=== PATIENT | female | born 1985 | race Caucasian/White ===

== ENCOUNTER 2019-04-13 11:22 | Emergency (ER) | payer OTHER ==
[~2019-04-13] VITALS: Ht 157.5 cm; Wt 63.0 kg
[2019-04-13 11:48] LABS: ABSOLUTE BASOPHILS 0.1 thou/uL (0.0-0.2); ABSOLUTE LYMPHOCYTES 2.7 thou/uL (0.8-5.3); ABSOLUTE MONOCYTES 0.7 thou/uL (0.0-1.2); BASOPHILS 0.6 %; EOSINOPHILS 0.3 %; HEMATOCRIT 40.7 % (37.0-47.0); HEMOGLOBIN 13.6 gm/dL (12.0-15.0); LYMPHOCYTES 23.2 %; MCH 28.5 pg (26.0-34.0); MCHC 33.5 g/dL (28.0-37.0); MCV 85.1 fL (80.0-100.0); MONOCYTES 5.9 %; MPV 8.5 fl. (7.2-11.1); NUCLEATED RBCS 0 /100WBC; PLATELET COUNT* 263 thou/uL (150-400); RBC 4.78 mil/uL (4.20-5.00); RDW-CV 14.7 % (10.5-14.5); WBC 11.5 thou/uL (4.0-11.0)
[2019-04-13 11:52] LABS: ANION GAP 13 mmol/L (7-16); BUN 8 mg/dL (7-18); CALCIUM 9.1 mg/dL (8.5-10.1); CHLORIDE 103 mmol/L (98-107); CO2 24 mmol/L (21-32); GLUCOSE 119 mg/dL (70-99); POTASSIUM 3.1 mmol/L (3.5-5.1); SODIUM 140 mmol/L (136-145)
[2019-04-13 12:01] LABS: ALBUMIN 3.7 g/dL (3.4-5.0); ALKALINE PHOSPHATASE 88 U/L (46-116); LIPASE 95 U/L (73-393); SGOT 12 U/L (15-37); SGPT 19 U/L (30-65); TOTAL BILIRUBIN 0.5 mg/dL (<0.1-1.0); TOTAL PROTEIN 7.9 g/dL (6.4-8.2); TROPONIN-I LEVEL <0.06 ng/mL (<0.06)
[2019-04-13] MEDS ORDERED: OMEPRAZOLE20 M2 PO (13:48)
[2019-04-13] MEDS ORDERED: CARAFATE 1 GM TA1 GM PO (13:48)
[2019-04-13 14:03] VITALS: BP 126/74
--- NOTE | 2019-04-13 14:03 | EKG ---
[place] [address] ELECTROCARDIOGRAM REPORT Name: Room: [facility] James#: [id number] Admission: 04/13/19 Attend Phys: Discharge: Date of : 85 Report #: [id number] THIS REPORT FOR: //name// [facility] ED Test Date: 2019-04-13 Test Time: 11:26:36 Pat Name: January Department: Room: Gender: F [place] [employer]: : 1985 Requested By: Jessica Lucero Order Number: [id number] MD: Chilango Quiros Measurements Intervals [place] Rate: 83 P: 86 AK: 151 QRS: 83 QRSD: 73 T: 59 QT: 385 QTc: 453 Interpretive Statements Sinus rhythm artifact noted Minimal ST depression, inferior leads No previous ECG available for comparison Electronically Signed On 04-13-2019 14:03:22 CDT by Chilango Quiros [email or web address] <ELECTRONICALLY SIGNED> By: Chilango Quiros MD, [facility] 04/13/19 1403 [id number] Chilango Quiros MD, FACC /EPI
== END 2019-04-13 14:05 | disposition home or self-care (01) ==
LOC: M.ERS 11:22
PROVIDERS: Personal Emergency Response Attendant
DX: K21.9 Gastro-esophageal reflux disease without esophagitis (principal); Z88.5 Allergy status to narcotic agent